=== PATIENT | male | born 1945 | race African-American/Black ===

== ENCOUNTER 2017-01-15 19:19 | Emergency (ER) | payer OTHER ==
[~2017-01-15] VITALS: Ht 170.2 cm; Wt 68.0 kg
[2017-01-15 19:31] VITALS: BP 122/67; PULSE 97; RESP 20; O2SAT 93
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
[2017-01-15] MEDS ORDERED: LIDOCAINE HCL 1% 50 ML VIAL INFIL ONE (20:00)
[2017-01-15] MEDS ORDERED: IBUPROFEN 800 MG TAB PO ONE (20:00)
[2017-01-15] MEDS ORDERED: PERI0.126 SWISH-SPIT (20:19)
[2017-01-15] MEDS ORDERED: IBUP800T23 PO (20:19)
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
== END 2017-01-15 20:56 ==
LOC: NEPD 19:19
DX: S01.511A Laceration without foreign body of lip, initial encounter (principal); S60.812A Abrasion of left wrist, initial encounter; M25.562 Pain in left knee; V49.9XXA Car occupant (driver) (passenger) injured in unspecified traffic accident, initial encounter
CPT/HCPCS: 12011